=== PATIENT | female | born 1980 | race Caucasian/White ===

== ENCOUNTER 2016-12-25 08:35 | Emergency (ER) | payer BC ==
--- NOTE | 2016-12-25 08:47 | UC ---
Lower Extremity/Ankle HPI - HPI Summary HPI Summary: 36 YEAR OLD FEMALE PRESENTS WITH COMPLAINS OF LEFT 4TH TOE PAIN/SWELLING. - History of Current Complaint Stated Complaint: LFT FOOT TOE INJURY Time Seen by Provider: 12/25/16 08:46 Hx Obtained From: Patient Hx Last Menstrual Period: 04/05/14 Onset/Duration: Sudden Onset Severity Initially: Moderate Severity Currently: Moderate Pain Scale Used: 0-10 Numeric - 7 Aggravating Factor(s): Standing Alleviating Factor(s): Rest, Elevation Able to Bear Weight: Yes - Allergies/Home Medications Allergies/Adverse Reactions: Allergies Allergy/AdvReac Type Severity Reaction Status Date / Time No Known Allergies Allergy Verified 12/25/16 09:16 PMH/Surg Hx/FS Hx/Imm Hx Previously Healthy: Yes - Surgical History Surgical History: None - Family History Known Family History: Positive: None - Social History Alcohol Use: Weekly Alcohol Amount: 1 PER WEEK Substance Use Type: None Smoking Status (MU): Never Smoked Tobacco Review of Systems Constitutional: Negative Skin: Negative Eyes: Negative ENT: Negative Respiratory: Negative Cardiovascular: Negative Gastrointestinal: Negative Genitourinary: Negative Motor: Negative Neurovascular: Negative Musculoskeletal: Other: - LEFT 4TH TOE PAIN/SWELLING Neurological: Negative Psychological: Negative All Other Systems Reviewed And Are Negative: Yes Physical Exam Triage Information Reviewed: Yes Appearance: Well-Appearing Eye Exam: Normal ENT Exam: Normal Dental Exam: Normal Neck exam: Normal Neck: Positive: 1 Respiratory Exam: Normal Cardiovascular Exam: Normal Abdominal Exam: Normal Neurological Exam: Normal Psychological Exam: Normal Skin: Positive: rashes Lower Extremity Course/Dx - Differential Dx/Diagnosis Provider Diagnoses: LEFT 4TH TOE SWELLING/PAIN/FRACTURE Discharge - Discharge Plan Condition: Stable Disposition: HOME Prescriptions: Meloxicam(NF) [Mobic(NF)] 7.5 mg PO BID #30 tab Patient Education Materials: Toe Fracture (ED), Foot Sprain (ED) Referrals: Johnathon Horn MD [Medical Doctor] - JUAN DAVID Restrepo [[employer], APPLICATION, OTHER] -
--- NOTE | 2016-12-25 09:10 | RAD ---
HISTORY: Left fourth digit trauma COMPARISONS: None VIEWS: 3, Frontal, lateral, and oblique views of the left foot FINDINGS: BONE DENSITY: Normal. BONES: The patient is status post internal fixation of the proximal phalanx of the first digit and the distal first metatarsal. There is no hardware failure or osteolysis. On one obliquity, there is a linear lucency of the distal talus of the fourth digit. JOINTS: There is no arthropathy. ALIGNMENT: There is no dislocation. SOFT TISSUES: Unremarkable. OTHER FINDINGS: None. IMPRESSION: POSTSURGICAL CHANGE. QUESTIONABLE NONDISPLACED FRACTURE OF THE DISTAL PHALANX OF THE FIRST DIGIT.
[2016-12-25 09:19] VITALS: BP 106/64
== END 2016-12-25 09:31 | disposition home or self-care (01) ==
LOC: UCCORT 08:35
DX: S92.912A Unspecified fracture of left toe(s), initial encounter for closed fracture (principal); M79.675 Pain in left toe(s); M79.89 Other specified soft tissue disorders; X58.XXXA Exposure to other specified factors, initial encounter
CPT/HCPCS: 99213; G0463

== ENCOUNTER 2018-01-01 19:11 | Emergency (ER) | payer BC ==
[2018-01-01 19:49] VITALS: BP 113/65
--- NOTE | 2018-01-01 20:04 | UC ---
Complaint Female HPI - HPI Summary HPI Summary: C/O urinary frequency, dysuria and some hematuria for the last 4-5 days. - History Of Current Complaint Chief Complaint: [facility]CGU Stated Complaint: URINARY Time Seen by Provider: 01/01/18 19:55 Hx Obtained From: Patient Hx Last Menstrual Period: 12/14/17 ?: No Onset/Duration: Gradual Onset, Lasting Days - 5, Still Present Severity Initially: Mild Severity Currently: Mild Pain Intensity: 0 Character: Burning Aggravating Factor(s): Urination Associated Signs And Symptoms: Negative: Fever, Back Pain, Vaginal Bleeding/ Discharge, Vaginal Discharge, Nausea, Vomiting(# Of Episodes =) Related Hx: - 2, Para - 2 - Risk Factors Ectopic Risk Factor: Maternal Age ^ 30 - Allergies/Home Medications Allergies/Adverse Reactions: Allergies Allergy/AdvReac Type Severity Reaction Status Date / Time No Known Allergies Allergy Verified 01/01/18 19:49 PMH/Surg Hx/FS Hx/Imm Hx Previously Healthy: Yes - Surgical History Surgical History: None Surgery Procedure, Year, and Place: Left Bunionectomy, 2015, [facility] - Family History Known Family History: Positive: Diabetes Negative: Cardiac Disease, Hypertension - Social History Occupation: Employed Full-time Lives: With Family Alcohol Use: Weekly Alcohol Amount: 1 PER WEEK Substance Use Type: None Smoking Status (MU): Never Smoked Tobacco Have You Smoked in the Last Year: No - Immunization History Most Recent Influenza Vaccination: Not the 2016/2017 Season Review of Systems Genitourinary: Dysuria, Hematuria, Frequency, Urgency Is Patient Immunocompromised?: No All Other Systems Reviewed And Are Negative: Yes Physical Exam Triage Information Reviewed: Yes Appearance: Well-Appearing, No Pain Distress, Well-Nourished Vital Signs: Initial Vital Signs Temp 98.7 F 01/01/18 19:45 Pulse 61 01/01/18 19:45 Resp 16 01/01/18 19:45 BP 113/65 01/01/18 19:45 Pulse Ox 100 01/01/18 19:45 Vital Signs Reviewed: Yes Eyes: Positive: Conjunctiva Clear Neck exam: Normal Respiratory Exam: Normal Cardiovascular Exam: Normal Abdomen Description: Positive: No Organomegaly. Negative: Nontender - mild suprapubic, CVA Tenderness (R), CVA Tenderness (L) Bowel Sounds: Positive: Present Musculoskeletal Exam: Normal Neurological Exam: Normal Psychological Exam: Normal Skin Exam: Normal Complaint Female Dx - Differential Dx/Diagnosis Differential Diagnosis/HQI/PQRI: Appendicitis, Endometriosis, Urinary Tract Infection Provider Diagnoses: Acute cystitis with hematuria. Discharge - Sign-Out/Discharge Documenting (check all that apply): Patient Departure All imaging exams completed and their final reports reviewed: No Studies - Discharge Plan Condition: Stable Disposition: HOME Prescriptions: Nitrofurantoin Monohyd/M-Cryst [Macrobid 100 mg Capsule] 100 mg PO BID #10 cap Phenazopyridine 200 mg (NF) [Pyridium 200 MG tab *] 200 mg PO TID PRN #6 tab PRN Reason: UTI symptoms Patient Education Materials: Urinary Tract Infection in Women (ED), Phenazopyridine (By mouth), Nitrofurantoin Combination (By mouth) Referrals: JUAN DAVID Caicedo [Primary Care Provider] - - Billing Disposition and Condition Condition: STABLE Disposition: Home
[2018-01-01] MEDS ORDERED: Nitrofurantoin Macrocrystals* 100 MG CAP PO ONE (20:08)
[2018-01-01] MEDS ORDERED: Phenazopyridine TAB* 100 MG PO ONE (20:08)
[2018-01-01] MEDS ORDERED: Nitrofurantoin Macrocrystals* 50 MG CAP PO ONE (20:13)
== END 2018-01-01 20:21 | disposition home or self-care (01) ==
LOC: UCCORT 19:11
DX: N30.01 Acute cystitis with hematuria (principal)
CPT/HCPCS: 81003; 87086; 99212; A9270-GY; G0463